=== PATIENT | male | born 1975 | race Asian ===

== ENCOUNTER 2017-03-28 04:41 | Inpatient (IN) | payer SELFPAY ==
[~2017-03-28] VITALS: Ht 165.1 cm; Wt 83.1 kg
[2017-03-28] VITALS (19 sets, daily range): BP systolic 104–143; BP diastolic 59–101; PULSE 55–71; RESP 11–20; O2SAT 95–99
--- NOTE | 2017-03-28 04:42 | ED.REPORT ---
HPI-Chest Pain 40 and Over Date of Service Mar 28, 2017 ED Provider: Dr. Georges The pt is a 42 y/o male with no pertinent hx who presents to the ED via EMS from [facility] due to a "4/10" substernal chest discomfort at rest that is exacerbated with deep breathing, onset about 7 hours ago. His BP en route was 150/102 The pt reported to the [facility] staff that he was getting into his car when he experienced sharp, substernal chest pain that radiated to his back. In the ED, the pt states his pain radiated up his neck. He was also dizzy, diaphoretic and nauseous. He denies lower extremity edema. Nursing Notes Stated Complaint: CHEST PAIN Nursing Notes Reviewed: Yes General Time Seen by MD: 04:42 Chief Complaint Chest pain Hx Obtained From: Patient, EMS Arrived By: Ambulance Sudden in Onset?: Yes Symptom Duration: Since onset Location: : Substernal Quality: Painful Radiation: : Neck Severity: Current: Pain level 4 out of 10 Severity: Maximum: Severe Similar Sx Previous: No Past Medical History Past Medical History none reported Past Surgical History none reported Family History Pt's uncles on mother's side of heart attacks at a young age. All of them smoked. Smoking History Current Every Day Smoker Social History Other Social History: Good social support, Ambulatory Status Independent Review of Systems Cardiovascular: Reports: Chest pain, Denies: Edema GI: Reports: Nausea Musculoskeletal: Reports: Back pain, Neck pain Skin: Reports Diaphoresis Neurologic: Reports: Dizziness Complete sys rev & neg: except as marked. Physical Exam Initial Vital Signs Vital Signs (First) Date Time Temp Pulse Resp B/P Pulse Ox O2 Delivery O2 Flow Rate FiO2 03/28/17 05:04 36.8 70 20 143/101 98 Room Air Initial VS: Reviewed Head / Eyes: Atraumatic, Normocephalic Extremities: Vascular intact, Neuro intact, No swelling, No tenderness Skin: Warm, Dry, No cyanosis Neurologic: Alert, Oriented, Nonfocal General/Constitutional: Awake, Alert, Well appearing, Cooperative Respiratory / Chest: Atraumatic, Breath sounds NL, Breath sounds = bilat, No respiratory distress, No rales, No rhonchi, No wheezing Cardiovascular: Heart rate NL, Regular rhythm, Heart sounds NL, No gallop, No murmurs, No rubs Abdomen: Atraumatic, Soft, Non-tender, No guarding, No rebound, BS normoactive Neck: Atraumatic, Supple, No adenopathy, No swelling, Non-tender, No JVD Lower Extremity / Pelvis / MS: Atraumatic, Full range of motion, No swelling, Non-tender, No deformity, Neurologic intact, Vascular intact Flea bites on both legs. Interpretation & Diagnostics Lab Results Interpretation Result Diagram: 03/28/17 0455 03/28/17 0455 Test 03/28/17 04:55 03/28/17 05:00 White Blood Count 8.8th/mm3 (3.8-10.1) Red Blood Count 5.42mil/mm3 (4.40-5.80) Hemoglobin 15.1g/dL (13.8-17.2) Hematocrit 43.8% (41.0-50.0) Mean Corpuscular Volume 80.8fL (81-100) Mean Corpuscular Hemoglobin 27.9pg (27.0-35.0) Mean Corpuscular Hemoglobin Concent 34.5% (32.0-37.0) Red Cell Distribution Width 13.1% (12.3-15.4) Platelet Count 305bil/L (150-400) Neutrophils (%) (Auto) 79.2% (40-74) Lymphocytes (%) (Auto) 15.6% (14-46) Monocytes (%) (Auto) 4.0% (4-12) Eosinophils (%) (Auto) 0.8% (0-5) Basophils (%) (Auto) 0.2% (0-3) Sodium Level 137mEq/L (134-144) Potassium Level 4.4mEq/L (3.5-5.2) Chloride Level 101mEq/L (97-108) Carbon Dioxide Level 17mmol/L (18-29) Blood Urea Nitrogen 8mg/dL (6-24) Creatinine 0.75mg/dL (0.76-1.27) Estimat Glomerular Filtration Rate 121mL/min (>59) Glucose Level 119mg/dL (60-99) Calcium Level 8.7mg/dL (8.5-10.1) Magnesium Level 2.3mg/dL (1.6-2.6) Total Bilirubin 0.5mg/dL (0.0-1.2) Aspartate Amino Transf (AST/SGOT) 29U/L (0-50) Alanine Aminotransferase (ALT/SGPT) 13U/L (0-44) Alkaline Phosphatase 73U/L (25-150) Troponin T 0.071ug/L (0.0-0.011) Pro-B-Type Natriuretic Peptide 57.75pg/mL (0-86) Total Protein 7.7g/dL (6.4-8.4) Albumin 4.2g/dL (3.4-5.0) Hold Ray Top Tube Received (Received) Hold Urine Received (Received) ECG Interpretation ECG Interpretation: ECG from [facility] at 03/27/17 (22:53) [place] sinus rhythm. Rate 79. Nonspecific repol abnormality, inferior leads. ECG #2 from [facility] 03/28/17 at 01:35 Normal sinus rhythm. Rate 71. Nonspecific repol abdnormality, inferior leads. ST elevation, consider lateral injury. ECG #3 from [facility] at 02:55 Normal sinus rhythm. Rate 74. ST elevation, probable normal early repol pattern ECG Interpretation: Normal sinus rhythm. Rate 71. Time: 04:44 Interpreted by: ED physician Normal ECG Interpretation: Normal ECG w/ rate of... (71), Normal rate, Normal sinus rhythm ECG Interpretation: Normal sinus rhythm. Rate 68. Rotation of lateral ST elevation. Reciprocal inferior changes. ST elevation, probable normal early repol pattern Time: 05:34 Interpreted by: ED physician X-Ray Chest Interpretation Chest Xray Interpretation: From [facility] (03/27/17) Normal single view chest View: Portable, 1 view Re-Eval/Medical Decision Med Decision/Clinical Course 42-year-old with lateral STEMI criteria and initially now resolving, but with some residual pain. EKG is returned essentially to normal. Troponin is elevated. Blood pressure is adequate and he is improving on advancing doses of nitroglycerin,, with additional morphine, heparin, aspirin, metoprolol single dose, Protonix, and Toradol. Discussed with cardiology will see urgently this morning. Admitted to the ICU. Time of Eval: 04:51 Re-Evaluation/Progress Note: Discussed the diagnoisis and plan to admit. Informed the pt that he will likely need catheterization. The pt understands and agrees with the plan. All questions answered. Time of Eval: 05:50 Re-Evaluation/Progress Note: The pt now rates his pain "8/10" in severity. Consultation #1: Referral / Consult Name: Misael Noble MD Consulted With: Cardiology Call Returned at: 03:50 Crop Picker: Will see patient, Agrees with eval, Agrees with plan Note: Recommends admitting the pt. Consultation #2: Referral / Consult Name: Kamryn Mack DO Consulted With: Hospitalist Call Returned at: 05:42 Crop Picker: Will see patient, Agrees with eval, Agrees with plan, Accepts admit Counseled Regarding: Diagnosis, Lab results, Need for admission Discharge & Departure Primary Impression: Acute IL Myocardial infarction ST status: non-ST elevation myocardial infarction Qualified Code: I21.4 - Non-ST elevation (NSTEMI) myocardial infarction Additional Impression: Chest pain Disposition: ADMITTED TO HOSPITAL Crit Care Except Billable Proc Time Spent: 30-74 minutes (sixty minutes) Services Performed: Patient management by me, Time spent at bedside, Reviewing test results, Reviewing imaging, Discussing patient care, Documentation in record, Time with fam/surrogate Scribe Attestation Portions of this note were transcribed by Mami Casarez. I,, personally performed the history,physical exam and medical decision-making;I reviewed and confirmed the accuracy of the information in the transcribed note. Signed by Tana Florentino. 03/28/17 Kam Georges MD Mar 28, 2017 04:42 Mami Casarez Mar 28, 2017 04:51
[2017-03-28] MEDS ORDERED: Heparin 25K Unit/500mL 0.45 NS 25,000 UNIT in IV Premix 1 EACH IV SCH ×2 (05:10→07:30)
[2017-03-28 05:15] LABS: BASOPHILS % (AUTO) 0.2 % (0-3); EOSINOPHILS % (AUTO) 0.8 % (0-5); Mean Corpuscular Hemoglobin 27.9 pg (27.0-35.0); Mean Corpuscular Volume 80.8 fL (81-100); NEUTROPHILS % (AUTO) 79.2 % (40-74); Platelet Count 305 bil/L (150-400)
[2017-03-28] MEDS ORDERED: Nitroglycerin 50 mg/250 mL D5W 50,000 MCG in IV Premix 1 EACH IV SCH ×2 (05:15→07:30)
[2017-03-28] MEDS ORDERED: MeTOProlol 1 mg/mL 5 mL Inj IVPUSH ONE (05:30)
[2017-03-28] MEDS ORDERED: Pantoprazole 40 mg ER24 Tablet PO ONE (05:55)
[2017-03-28 06:11] LABS: Magnesium 2.3 mg/dL (1.6-2.6)
[2017-03-28 06:14] LABS: TROPONIN T 0.071 ug/L (0.0-0.011)
[2017-03-28] MEDS ORDERED: 0.9% Sodium Chloride 1,000 ML IV SCH ×2 (07:23→12:35)
[2017-03-28] MEDS ORDERED: Polyethylene Glycol (PEG) 17 Gm Powder PO PRN (07:25)
[2017-03-28] MEDS ORDERED: Ondansetron 2 mg/mL 2 mL Inj IVPUSH PRN ×2 (07:25→07:30)
[2017-03-28] MEDS ORDERED: Alum-Mag Hydrox-Simeth 30 mL Suspension PO PRN (07:25)
[2017-03-28] MEDS ORDERED: Lactated Ringer's 1,000 ML IV SCH (07:26)
[2017-03-28] MEDS ORDERED: Nitroglycerin 50,000 mcg/250 mL D5W Premix IV ONE (09:04)
[2017-03-28] MEDS ORDERED: Heparin 1,000 Unit/mL 10 mL Inj ONE ×2 (09:04→10:07)
[2017-03-28] MEDS ORDERED: Heparin 1,000 Units/500 mL NS Premix IV ONE (09:04)
[2017-03-28] MEDS ORDERED: Heparin 10,000 Unit/1,000 mL NS Premix IV ONE (09:05)
[2017-03-28 09:18] LABS: APPEARANCE,URINE CLEAR (CLEAR,HAZY); COLOR,URINE STRAW (YELLOW)
[2017-03-28 09:19] LABS: OCCULT BLOOD,URINE TRACE (NEGATIVE); UROBILINOGEN,URINE NORMAL (NORMAL)
[2017-03-28] MEDS ORDERED: fentaNYL-PF 50 mCg/mL 2 mL Inj ONE ×2 (09:30→10:07)
--- NOTE | 2017-03-28 09:43 | CONS ---
[address] [address] CONSULTATION REPORT PATIENT: MERLE CHRISTY : 1975 MR#: [id number] ADMIT: 03/28/2017 JOB ID: [id number] DATE OF SERVICE: Tuesday, March 28, 2017 CARDIOLOGY CONSULTATION NOTE--INITIAL CRITICAL CARE EVALUATION (EMERGENCY DEPARTMENT): CONSULTING PHYSICIAN: Cardiology--Misael Noble MD PROBLEMS: 1. Acute coronary syndrome. (ACS): a. Chest pain-severe retrosternal chest pain; atypical because pleuritic; and now pain free. b. NSTEMI-troponin initially normal, then elevated. c. ECG-initially normal then nondiagnostic subtle lateral ST elevation; then ECG normalized. d. Working diagnosis is atypical ACS with NSTEMI. CORONARY ARTERY DISEASE RISK FACTORS: Hypertension--history of previous hypertension now resolved and no treatment. No history of treated hyperlipidemia. No history of diabetes. Cigarettes--Current smoking 1/3 pack per day for 30 years with no other cigarette sequelae noted. Family history--Strong family history of premature coronary disease (multiple uncles under 50 years old). OTHER MEDICAL PROBLEMS: 1. Gout. 2. Kidney stones. CHIEF COMPLAINT: Chest pain and abnormal ECG and abnormal troponin. HISTORY OF PRESENT ILLNESS: I am glad to meet this 42-year-old man who was transferred to this emergency department by ambulance after he initially presented to the emergency department at [facility] by his personal vehicle. The patient tells me he had the sudden onset of severe (8/10 intensity) retrosternal chest discomfort while getting out of his car yesterday evening. He was diaphoretic with "clamminess." The pain was severe and radiated to the neck and his back hurt a little. He has never had difficulty like this. Before the pain has been consistently worse with breathing in and is sharp in quality but also predominantly pressure-like. His course in the emergency department was initially notable for unremarkable ECG, negative troponin, and he was thought to have possibly heartburn and as much as he felt like his symptoms were heartburn. He does not have indigestion or heartburn usually. He had eaten a MRE (meal ready to eat) ration which was spicy. He had persistent pain. A followup ECG showed subtle ST-elevation in lead L1 and V6. Then a subsequent ECG was normalized, but troponin had become slightly elevated. He was transferred to this hospital with mild ongoing chest discomfort with NTG IV. He is now chest pain free. ECG after transfer here is not outside normal limits. CARDIAC HISTORY: The patient tells me he has had no prior heart history or evaluation. He is generally healthy. Has no doctor currently. He is generally very vigorously active without effort, limitation, or effort-related symptoms. 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 He is functional class one. He also works out including pull-ups. Regarding ischemic symptoms, he has had no prior chest discomfort or effort related chest pain. Regarding heart failure, he reports no chronic exertional dyspnea or nocturnal dyspnea or edema. Regarding arrhythmia, he reports no known arrhythmia or symptoms of arrhythmia, including tachy palpitation, presyncope, or syncope. Regarding other possible underlying vascular disease, he reports no history of CVA or current symptoms of TIA. No claudication. Regarding possible dual antiplatelet therapy, he reports no bleeding symptoms, no anticipated surgery; and he reports reliable to take mandatory medicines if needed. ALLERGIES: No known allergies. I elicit no history of allergy to medical contrast; or to fish, seafood, iodine, or shellfish. MEDICATIONS: He reports no medicines at all usually. He took Aleve about a month ago for a severe gout attack. PAST MEDICAL HISTORY: Gout: He had a recent episode of joint redness, inflammation, very severe could not even let sheets lay on his bilateral great toes and joints were inflamed to the hips. He took Aleve. REVIEW OF SYSTEMS: I questioned him and his about a 13-point review of systems, which is unremarkable, noncontributory, and negative, except as noted including: No history of thyroid disorder. Constitutional--He lost substantial weight in the past voluntarily from above 200 pounds to his current weight of 180. Otherwise no constitutional symptoms. No lung disorder including COPD, emphysema, or chronic bronchitis symptoms. No GI symptoms including hepatitis, jaundice, or ulcers. He may have rare heartburn not like the current. PERSONAL AND SOCIAL HISTORY: Alcohol--He drinks socially occasionally. Drugs--He reports no other drug use. Family--He lives with his of over 20 years who he met in childhood. They have grown children with grandchildren. FAMILY HISTORY: In addition to family history of premature coronary disease. Note also family history of hypertension and diabetes. PHYSICAL EXAMINATION: VITAL SIGNS: Blood pressure initially 143/101 now 120/80, with heart rate 71 regular in sinus rhythm on telemetry. Respiratory rate 15 and unlabored with SpO2 97% on nasal cannula 2 LPM. Afebrile. Weight 180 pounds. GENERAL APPEARANCE: Pleasant, well-developed man, in no distress. NEUROLOGIC AND MENTAL STATUS: No overt focal neurologic defect noted. He is alert, oriented, appropriate, and conversant. HEENT: PERRL. Conjunctivae pink. Sclerae not icteric. Mouth and mucous membranes intact with Mallampati four. NECK: Carotid upstroke difficult to feel due to body habitus, but appear unremarkable and no bruit bilaterally. No evident jugular venous distention. No palpable thyromegaly. No palpable cervical lymphadenopathy. LUNGS: Clear to auscultation bilaterally with normal forced expiratory time. CARDIAC: No chest wall tenderness. Cardiac examination notable for distant heart sounds, S4 gallop, and no loud murmur heard. ABDOMEN: Somewhat obese, but otherwise unremarkable examination without tenderness, mass, hepatosplenomegaly, or bruit of abdominal aortic aneurysm. EXTREMITIES: Intact without edema; and pedal pulses strong at the bilateral dorsalis pedis and posterior tibial. DIAGNOSTIC STUDIES: 1. Electrocardiogram: I reviewed the multiple serial ECGs beginning with the ECGs at [facility]. ECG initially abnormal with nonspecific ST cough depression inferiorly which in retrospect may represent subtle reciprocal ST depression, which cleared. Followup ECG showed subtle ST-elevation in L1 and V6 which do not meet guideline criteria for STEMI with concave upward ST elevation less than or equal to 1 mm. Then subsequent ECGs normalized; and the current ECG is not outside normal limits. No Q-waves. Also note no AZ depression or AZ elevation. 2. Chest x-ray: The chest x-ray shows borderline cardiomegaly, but overall not outside normal limits and no heart failure. LABORATORY: CBC includes WBC 8800, with hemoglobin 15.1, hematocrit 43.8, MCV 80.8 (borderline low) normal MCHC and platelet count 305,000. D-dimer not elevated. Urine toxicology pending. Chemistries include potassium 4.4 (initially 3.3 at the outside hospital) with BUN 8, creatinine 0.75 estimated. GFR 121. Glucose 119. Magnesium 2.3. LFT unremarkable. Cardiac markers include troponin 0.71, with proBNP not elevated 57.75 Note initial outside troponin negative, then became borderline elevated. ASSESSMENT: I discussed the findings, impressions, and management considerations with the patient and his ; also with the ED physician at [facility] ( ); with the ED physician here (Dr. Georges); with the hospitalist team (Dr. Chaney); and with Cardiology (Dr. Rosen) including: Acute coronary syndrome (ACS) with atypical presentation: 1. He presents with severe chest pain that is consistent with ischemia. 2. The chest discomfort also has atypical features being pleuritic. 3. It was severe, then ongoing, now pain free. 4. He is otherwise clinically stable. 5. The ECG had transient changes suggestive of STEMI, but not definitive. 6. The troponin points to coronary disease as well. The overall impression and working diagnosis is likely coronary disease presenting with atypical scenario with ST elevation that was nondiagnostic, then resolved. I discussed with the patient and his the recommendation to proceed now with urgent coronary angiogram for definitive diagnosis and to guide treatment decisions including medical therapy or percutaneous coronary intervention (PCI); or coronary bypass surgery if needed. We discussed the uncertainty and the diagnosis and the possibility of other diagnoses including pulmonary embolus. We discussed the procedure including possible risks and complications. We discussed bleeding, infection, and blood clot; as well as injury to nerve, artery, vein or kidney; and also arrhythmia, drug reaction; or others. We discussed treatment as needed including surgery, pacemaker, transfusion. We discussed more serious complications that are possible including stroke, heart attack, cardiac arrest, and emergency surgery including transfer for coronary bypass surgery. After our discussion and questions, he signed informed consent to proceed. RECOMMENDATIONS: 1. Coronary angiogram. 2. Echocardiogram. 3. Admit to the hospitalist for OMT-optimal guideline directed medical therapy including ASA consider Plavix; beta-francisco; high-intensity statin consider DEBO inhibitor later; IV NTG; and IV heparin infusion.
--- NOTE | 2017-03-28 10:40 | PCM.HPMED ---
Subjective Date of Service Mar 28, 2017 Primary Provider: Admitting Physician: Kamryn Mack DO Primary Care Physician: Nopcp Attending Physician: Kamryn Mack DO Chief Complaint: Patient 42-year-old transferred from [facility] to [facility] for acute chest pain. History of Present Illness: Patient reports being fairly healthy with medical history significant for gout in the family history of sudden cardiac in 2 uncles. Patient reported about 10 PM last night, started having pleuritic chest pain after stepping off his truck to a friend's house with associated lightheadedness. This pain evolve to all left shoulder and left jaw pain. Patient describes his pain as crushing. Patient was initially evaluated with [facility]. where the initial thought was GERD related. GI cocktail was given did not resolve pain. The initial EKG did not show any ST elevation, however repeated EKG showed ST elevation consistent with lateral FL. Patient was just transferred discussion for further evaluation. He was started on heparin and nitroglycerin which helped resolve his chest pain. Patient denies any chest pain, shortness of breath, lightheadedness, palpitation, dizziness, or headaches on interview. Patient further denies any nausea or vomiting. Review of Systems: A comprehensive review of systems was conducted with the patient and found to be negative except as above in the History of Present Illness. Allergies Coded Allergies: No Known Allergies (Unverified , 03/28/17) Home Medications Denies any home medication [facility] Gout Surgical History Denies Family History Father with hypertension and diabetes and 2 Mother with hypertension History of sudden in 2 uncles at 52 and 42 years old. 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 Hx Alcohol Use: No Hx Substance Use: No Smoking Status: Current Every Day Smoker Living Arrangement: with Family Exam Vital Signs Vital Sign - Last Date Time Temp Pulse Resp B/P Pulse Ox O2 Delivery O2 Flow Rate FiO2 03/28/17 07:00 71 17 122/81 95 Room Air 03/28/17 05:04 36.8 Intake and Output 03/27/17 03/27/17 03/28/17 Cumulative From/Thru 15:00 23:00 07:00 03/28/17 05:04 - 03/28/17 06:22 Intake Total 200 ml 200 ml Output Total 550 ml 550 ml Balance -350 ml -350 ml Intake Oral 200 ml 200 ml Output Urine Total 550 ml 550 ml Exam General: No acute distress, appropriately interactive HEENT: Normocephalic, atraumatic. PERRLA, EOMI, Anicteric sclerae, moist conjunctivae. Neck: No JVD, No bruits. No lymphadenopathy or thyromegaly. Cardiovascular: Regular rate and rhythm with no murmurs, rubs, or gallops appreciated Pulmonary: b/l air sound with no crackles, wheezes, or rhonchi. no use of accessory muscles. Abdomen: +Bowel sound, Soft, nontender, nondistended. Extremities: No clubbing or cyanosis, no lymphedema, no b/l lower leg edema Skin: Normal temperature, turgor, and texture; no rash. No visualized skin ulcer. Neurological: CN II-VII grossly intact, moving equally on all 4 extremities Psychiatric: Normal mood and affect. AOx3 Lab and Diagnostics Result Diagram: 03/28/17 0455 03/28/17 0455 Assessment & Plan 42-year-old male without significant health history present with Floretta chest pain found to have lateral STEMI with elevated troponin, admitted for STEMI STEMI -D-dimer negative, Elevated troponins, ST elevation noted at around 2 AM this morning, normal sinus Resolve ST elevation after nitro drip started prior to catheterization -Continue aspirin daily, added atorvastatin -Heparin and nitroglycerin drip -Catheterization later today, echocardiogram ordered -Lipids panel in a.m. Elevated blood pressure -Likely underlining primary hypertension -UA negative for protein -Monitor Hyperglycemia -A1c pending Tobacco use disorder -Discussed to the dangers of smoking and the benefits of cessation. -Nicotine patch provided DVT prophylaxis heparin CODE STATUS full code Patient Status: Patient is admitted under inpatient status with expected length of stay GREATER than 2 midnights due to severity of presenting symptoms, risk of adverse event, and complexity of treatment plan. GI Prophylaxis: Not indicated Resuscitation Status: CPR: Attempt Resuscitation Time spent 50 minutes Attending Statement The patient was seen and examined together with on March 28 and I agree with the history, exam findings, and plan as outlined in the note above. I did participate in all aspects of the services provided today, including documentation and the plan of care. This patient underwent stenting and clinically is doing well. He has minimal troponin elevation, no evidence of dyspnea or ventricular dysfunction. No arrhythmia. Anticipate observation for another 24 hours and probable discharge home. Philip Villafuerte DO Mar 28, 2017 07:23 Joss Rosario MD Mar 29, 2017 07:49
--- NOTE | 2017-03-28 12:24 | CS94 ---
[address] [address] DIAGNOSTIC CARDIAC CATHETERIZATION PATIENT: MERLE CHRISTY : 1975 MR#: [id number] ADMIT: 03/28/2017 JOB ID: [id number] PROCEDURE NOTE-CARDIAC CATHETERIZATION LABORATORY: SERVICE DATE: Tuesday, March 28, 2017. MATERIAL REQUISITIONER: Misael Noble MD PROCEDURES: 1. Coronary angiogram--urgent. 2. Left heart catheterization (LHC)--pressure measurement. 3. Percutaneous coronary intervention (PCI)-SOLANGE (drug-eluting stent) Xience 2.25 x 15 in ostium of occluded obtuse marginal one. CLINICAL DETAILS: This 42-year-old man presents to the cardiac catheterization laboratory after he was transferred to the emergency department here from the [facility] Emergency Department where he had presented the evening prior with the first ever onset of severe chest pain that was pressure like, but also atypical with sharp and pleuritic components. He has no prior known heart disease. CORONARY RISK FACTORS: Include ongoing smoking 1/3 pack a day for 30 years; and a strong family history of premature coronary disease including in three uncles in their 40s. Initially his symptoms were considered possibly heartburn; ECG was normal; and troponin was negative. Later troponin became slightly elevated; and ECG showed subtle nondiagnostic ST elevation with concave upward ST elevation less than or equal to 1 mm only in L1 and V6; but there been initially inferior ST depression. Subsequent ECGs showed normalization of the subtle ST elevation as well as the inferior ST depression (consider reciprocal changes). Chest pain cleared with modest doses of NTG IV. The clinical working diagnosis is probable ACS with atypical presentation with resolved chest pain and resolved JULIÁN. PROCEDURAL DETAILS: I evaluated him urgently in the emergency department prior to the procedure where I discussed the findings, impressions, and management considerations with him and his ; including the recommendation to proceed urgently to coronary angiogram for definitive diagnosis and to guide management options including medical therapy; PCI if needed; or CAD if indicated. We discussed the procedure including possible risks and complications. After discussion and questions, he signed informed consent to proceed. He was brought to the catheterization laboratory n.p.o. where he was prepped sterilely and draped. Prior to the procedure he had received ASA; heparin IV infusion; NTG IV infusion; and statin. CORONARY ANGIOGRAM: Arterial access was obtained without difficulty in the right common femoral artery using fluoroscopic localization over the femoral head; with lidocaine local anesthesia; and modified Seldinger technique to insert a 10 cm, 6-Congolese side-arm sheath. Catheters were advanced and exchanged over a long 0.035-inch J-tipped guidewire. For coronary angiography, the left coronary artery was engaged with a 6-Congolese JL-4 diagnostic catheter; and the right coronary artery was engaged with a 6-Congolese JR-4 catheter. LHC: The catheter crossed the aortic valve into the left ventricle where pressures were measured including LVED; and pullback. PERCUTANEOUS CORONARY INTERVENTION (PCI) of ostial OM-1: The diagnostic images were reviewed and decision was made to proceed with urgent PCI of the occluded ostial OM-1 (WOLFGANG 0 flow). For intervention, he received Prasugrel loading dose 60 mg p.o.; and procedural anticoagulation was obtained with bolus heparin IV. NTG IC was used during the procedure. The left coronary artery was gauged for intervention with a 6-Congolese HBS 3.5 guide catheter. The occlusion was crossed without difficulty using a BMW wire--0.014 inches x 190 cm--which was placed distally in the OM. Predilatation: The lesion was pre-dilated and the artery was opened with two inflations of a Trek balloon--2.5 x 15 mm--inflated to maximum 8 atmospheres. Stent: Next, the site of occlusion in the ostial OM was treated with a Xience Alpine SOLANGE--2.25 x 15 mm-deployed with two inflations to maximum 18 atmospheres. Completion angiograms show an excellent angiographic result with no residual lesion; WOLFGANG-3 flow resumed; and no angiographic complication evident. Procedure without difficulty. Patient tolerated procedure well. No complication. A side-arm sheath angiogram shows adequate access in the RFA for closure device. Arterial hemostasis is obtained without difficulty using a 6-Congolese StarClose clip. The patient is transferred pain free, improved, and in stable condition from the catheterization laboratory to the CCU unit for ongoing care including by the primary hospitalist team. I discussed the procedure findings and ongoing management considerations with the patient and his ; with Cardiology (Dr. Rosen); and with the hospitalist team ( ). FINDINGS: 1. LMCA: Short. Intact. 2. LAD: Intact except for mild atherosclerotic plaquing; and 50% to 60% proximal narrowing of a small to medium-sized OM-1 (2-2.5 mm). The left anterior descending coronary artery is a large transapical vessel. 3. LCX: Note OM-1 (after a very small more proximal OM) is occluded just past the ostium. After revascularization the vessel is seen to be long and moderate to large size; and has some mild proximal plaquing distal to the treatment site. The remainder of the LCX distribution includes a very large LPLB. 4. RCA: Dominant. Note mild to moderate diffuse atherosclerotic plaquing including 50% focal proximal narrowing. The RCA is a large vessel with a medium-sized PDA and a small to medium-sized RPLB distribution. 5. LHC: LVED 28 mmHg; and no systolic gradient on pullback across the aortic valve. CONCLUSIONS: 1. PCI-Xience Alpine SOLANGE 2.25 x 15 mm deployed at high pressure in ostium of occluded OM-1. 2. ACS-NSTEMI with atypical presentation including resolved nondiagnostic JULIÁN. 3. Coronary artery disease (CAD)--single vessel CAD of OM-1; and note also diffuse moderate atherosclerotic plaquing. RECOMMENDATIONS: 1. ECASA--indefinitely. 2. Prasugrel--Plan dual antiplatelet therapy for one year if well tolerated including with ongoing Cardiology followup; and I discussed with the patient and his not to stop Prasugrel for any reason without immediate Cardiology consultation. They understand the importance of mandatory aspirin and Prasugrel. 3. Eechocardiogram. 4. Admit to the hospitalist service. 5. OMT--Guideline directed optimal medical therapy for underlying CAD risk factors and CAD. I discussed with him the critical importance of smoking cessation. PLAN: ASA; Prasugrel; high-intensity statin; beta-francisco; and later to consider DEBO inhibitor.
[2017-03-28] MEDS ORDERED: 0.9% Sodium Chloride 250 ML BOLUS IV PRN (12:35)
[2017-03-28] MEDS ORDERED: Sodium Chloride LOK Flush 10 mL Syringe IVFLUSH PRN (12:35)
--- NOTE | 2017-03-28 13:06 | NUR ---
Admit/Heart Cath Recovery Patient arrived to 2012 from dye lab technician around 1050, Nitro infusing @ 30mcg/min w/ orders to titrate down & STOP, currently infusing @ 5mcg/min, no c/o cp/pressure, BP stable. Post procedure checks completed & WNL, hourly checks from this point forward. Scant amount of sang from right groin, soft to palpation, able to ambulate at 1300, patient stood to use urinal, tolerated well, no oozing from groin site post activity. NS infusing @ 100ml/hr. EKG & echo completed. Able to eat @ 1500, oriented to room, admit completed by primary RN.
--- NOTE | 2017-03-28 13:53 | DRSVH ---
PROCEDURE: X-RAY CHEST ONE VIEW, PORTABLE ([id number]) INDICATIONS: CHEST PAIN TECHNIQUE: One view of the chest was acquired. COMPARISON: None. FINDINGS: Surgical changes and devices: None. Lungs and pleura: No pleural effusions or pneumothorax. Lungs are clear. Mediastinum: Mediastinal contours appear normal. Heart size is normal. Bones and chest wall: No suspicious bony lesions. Overlying soft tissues appear unremarkable. IMPRESSION: 1. No acute cardiopulmonary disease. Dictated by: Roger Aleman M.D. on 03/28/2017 at 13:51 Approved by: Roger Aleman M.D. on 03/28/2017 at 13:52
--- NOTE | 2017-03-28 14:39 | DRSVH ---
[facility] [address] [place] [address] Echocardiogram Report Name: MERLE CHRISTY FStudy Date : 03/28/2017 Height: 65 in Hospital Exam Location: [facility] Weight: 178 lb Gender: Male BSA: 1.9 m2 : 1975 Age: 42 yrs BP: 120/80 mmHg Reason For Study: STEMI Ordering Physician: HOSPITALIST [facility] Performed By: Connie Acuña Referring Physician: HOSPITALIST [facility] Interpretation Summary The left ventricle is normal in size. The ejection fraction is estimated to be 40-45%. There appears to be severe hypokinesis of mid to distal posterolateral wall, extending in to the mid to distal anterolateral wall. Inferior wall appears to be mildly hypokinetic as well. The right ventricle is grossly normal size. The right ventricular systolic function is normal. No significant valvular pathology seen. Procedure: A two-dimensional transthoracic echocardiogram with color flow and Doppler was performed. The study quality was technically adequate. There is no prior echocardiogram noted for this patient. The patient was in normal sinus rhythm during the exam. Left Ventricle: The left ventricle is normal in size. There is normal left ventricular wall thickness. There is no thrombus. The ejection fraction is estimated to be 40-45%. There appears to be severe hypokinesis of mid to distal posterolateral wall, extending in to the mid to distal anterolateral wall. Inferior wall appears to be mildly hypokinetic as well. Assessment of diastolic parameters indicates a relaxation abnormality of the left ventricle, consistent with normal filling pressures. Right Ventricle: The right ventricle is grossly normal size. The right ventricular systolic function is normal. Atria: The left atrial size is normal. Right atrial size is normal. The interatrial septum is intact with no evidence for an atrial septal defect. Mitral Valve: The mitral valve leaflets are slightly calcified. There is trace mitral regurgitation. Aortic Valve: The aortic valve is trileaflet. The aortic valve opens well. There is no aortic valve stenosis. No aortic regurgitation is present. Tricuspid Valve: The tricuspid valve is normal in structure and function. There is trace tricuspid regurgitation. Pulmonary artery pressures cannot be estimated because of the lack of a measurable TR jet velocity. Pulmonic Valve: The pulmonic valve is not well seen, but is grossly normal. There is a trace or physiologic amount of pulmonic regurgitation. Great Vessels: The aortic root is normal size. The ascending aorta is normal in size. The IVC is of normal diameter and collapses greater than 50% with a sniff. This suggests a low right atrial pressure of 3 mm Hg. Pericardium/ Pleura There is no pericardial effusion. There is no pleural effusion. MMode/2D Measurements & Calculations LVIDd: 5.3 cm RA long axis LVOT diam LVIDs: 4.1 cm LA A2 area: 15.8 cm FS: 22.6 % LA A4 area: 16.2 cm RA area asc Aorta IVSd: 0.88 cm LA length (vol): 5.0 cm Diam: 2.7 cm LVPWd: 0.98 cm LA vol: 42.8 ml : 15.9 cm LA vol index RA vol: 42.5 ml RA : 22.6 mm2 IVC diam: 1.9 cm LV nelson. diameter/BSA LV sys. diameter/BSA TAPSE: 2.2 cm (cm/m^2): 2.8 (cm/m^2): 2.2 Doppler Measurements & Calculations Ao V2 max: 103.5 cm/secMV E max quinten MV E/A: 0.89 PA V2 max Ao max P.3 mmHg : 64.3 cm/sec Med Peak E' Quinten : 44.5 cm/sec Ao mean P.7 mmHg MV A max quinten PA mean PG LVOT Max Quinten : 72.4 cm/sec E/E' med: 10.2 : 0.42 mmHg : 87.9 cm/sec Lat Peak E' Quinten SHANA(I,D): 3.2 cm E/E' lat: 7.6 sev ratio: 0.78 E/e' average: 8.9 MV dec time: 0.16 sec Ao V2 mean LV V1 max PG PA V2 mean : 79.0 cm/sec : 30.8 cm/sec Ao V2 VTI: 22.6 cmLV V1 VTI: 17.5 cm PA pr(Accel) : 18.6 mmHg SHANA(V,D): 3.5 cm2 SHANA indexed to BSA (cm^2/m^2): 1.7 Reading Physician:PM
--- NOTE | 2017-03-28 15:38 | NUR ---
PCC Status Patient downgraded to PCC status @ 1530, nitro gtt weaned off, post heart cath checks completed. NS infusing @ 100ml/hr. 2L O2 placed d/t reports of sleep apnea & patient c/o feeling sob. Right groin site dressing removed by security alarm installer & replaced by RN, slight sang oozing, no hematoma noted. Tolerated standing at the bedside well, no oral intake per patients choice, states he'll eat dinner. Family at the bedside.
--- NOTE | 2017-03-28 17:29 | NUR ---
Social Work- Brief Note/Attempted Initial Assessment Data: EMR reviewed. Pt is a 42 year old male admitted for acute LA s/p cath. Pt's insurance is [employer]. Pt's PCP is not listed. Pt's readmit risk score is not entered at this time. Pt discussed in multidisciplinary rounds. No concerns for pt's capacity for self-care. Per chart review pt has already been up ambulating in the halls. SW attempted to meet with pt at bedside regarding d/c plan. Pt had numerous family in the room and requested that COLD ROLL INSPECTOR return tomorrow so as not to interrupt their visit. Per chart review pt resides at home in [place] with his where he is independent at baseline with ADLs and self-care. 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 Pt is typically vigorously active. No discharge planning needs or barriers anticipated at this time, but COLD ROLL INSPECTOR will follow up with pt tomorrow to confirm discharge plan. Assessment: Pt who is independent with ADLs and self-care Plan: Pt likely to d/c home with to transport via POV. No discharge needs anticipated upon chart review, but COLD ROLL INSPECTOR will meet with pt tomorrow to confirm d/c plan. TOMAS Rosales
[2017-03-29] VITALS (8 sets, daily range): BP systolic 119–144; BP diastolic 77–94; PULSE 56–76; RESP 14–20; O2SAT 97–99
[2017-03-29 02:41] LABS: Mean Corpuscular Volume 82.5 fL (81-100)
--- NOTE | 2017-03-29 06:17 | NUR ---
Assumed care ~1930, pt. A/O with family at bedside. Denies pain or discomfort. R groin site changed and remains c/d/i. Up without difficulty to BR and throughout room. Rested for extended period. VSS. Tele: SR in 60s. Indicates no further needs.
--- NOTE | 2017-03-29 13:07 | PCM.PNMED ---
Subjective Date of Service Mar 29, 2017 Subjective Patient is a 42-year-old male without significant health history presented with cardiac chest pain, diagnosed with STEMI, status post one drug-eluting stent to the obtuse marginal 1. Patient without new complaints today, feels mild generalized weakness compared to yesterday. Otherwise, patient denies any chest pain, shortness of breath, dizziness, or palpitation. Exam Vital Signs Vital Sign - Last Date Time Temp Pulse Resp B/P Pulse Ox O2 Delivery O2 Flow Rate FiO2 03/29/17 10:54 63 03/29/17 08:45 36.7 16 138/84 99 Room Air 03/28/17 07:30 2 Intake and Output 03/28/17 03/28/17 03/29/17 Cumulative From/Thru 15:00 23:00 07:00 03/28/17 05:04 - 03/29/17 06:16 Intake Total 1069 ml 908 ml 2177 ml Output Total 600 ml 1300 ml 2450 ml Balance 469 ml -392 ml -273 ml Intake Oral 400 ml 200 ml 800 ml IV Total 669 ml 708 ml 1377 ml Output Urine Total 600 ml 1300 ml 2450 ml # Voids 3 3 # Bowel Movements 0 0 Exam General: No acute distress, appropriately interactive HEENT: Normocephalic, atraumatic. PERRLA, EOMI, Anicteric sclerae, moist conjunctivae. Neck: No JVD, No bruits. No lymphadenopathy or thyromegaly. Cardiovascular: Regular rate and rhythm with no murmurs, rubs, or gallops appreciated Pulmonary: b/l air sound with no crackles, wheezes, or rhonchi. no use of accessory muscles. Abdomen: +Bowel sound, Soft, nontender, nondistended. Extremities: No clubbing or cyanosis, no lymphedema, no b/l lower leg edema Skin: Normal temperature, turgor, and texture; no rash. No visualized skin ulcer. No hematoma on the right upper leg Neurological: CN II-VII grossly intact, moving equally on all 4 extremities Psychiatric: Normal mood and affect. AOx3 IVs and Medications Medications Reviewed: Medications were reviewed in detail Lab and Diagnostics Result Diagram: 03/29/1721903/29/17219 Cardiac Echo Impressions Echocardiogram Reason For Study: STEMI Ordering Physician: HOSPITALIST [facility] Performed By: Connie Acuña Referring Physician: HOSPITALIST [facility] Interpretation Summary The left ventricle is normal in size. The ejection fraction is estimated to be 40-45%. There appears to be severe hypokinesis of mid to distal posterolateral wall, extending in to the mid to distal anterolateral wall. Inferior wall appears to be mildly hypokinetic as well. The right ventricle is grossly normal size. The right ventricular systolic function is normal. No significant valvular pathology seen. Reading Physician: PM Additional Diagnostics PROCEDURE NOTE-CARDIAC CATHETERIZATION LABORATORY: CONCLUSIONS: 1. PCI-Xience Alpine SOLANGE 2.25 x 15 mm deployed at high pressure in ostium of occluded OM-1. 2. ACS-NSTEMI with atypical presentation including resolved nondiagnostic JULIÁN. 3. Coronary artery disease (CAD)--single vessel CAD of OM-1; and note also diffuse moderate atherosclerotic plaquing. RECOMMENDATIONS: 1. ECASA--indefinitely. 2. Prasugrel--Plan dual antiplatelet therapy for one year if well tolerated including with ongoing Cardiology followup; and I discussed with the patient and his not to stop Prasugrel for any reason without immediate Cardiology consultation. They understand the importance of mandatory aspirin and Prasugrel. 3. Eechocardiogram. 4. Admit to the hospitalist service. 5. OMT--Guideline directed optimal medical therapy for underlying CAD risk factors and CAD. I discussed with him the critical importance of smoking cessation. PLAN: ASA; Prasugrel; high-intensity statin; beta-francisco; and later to consider DEBO inhibitor. Misael Noble MD 03/28/17 2855 Assessment & Plan 42-year-old male without significant health history present with cardiac chest pain found to have lateral STEMI with elevated troponin, admitted for STEMI STEMI -D-dimer negative, Elevated troponins with ST elevation -received 1 drug eluting stent to OM-1 -Cont aspirin, atorvastatin, -Switch from prasugrel to plavix. added metoprolol -Continue telemetry -will need tool and die designer outpatient follow-up Heart failure with reduced EF -Echo showed EF 40-45%, with severe hypokinesis to mid distal posterolateral wall -Secondary to STEMI -Consider repeat echo to reevaluate cardiac function down the line Elevated blood pressure -metoprolol as above Hyperglycemia -A1c 6.0 Dyslipidemia -Triglyceride 256, with cholesterol 175, HDL 25 -High intensity atorvastatin Tobacco use disorder -Discussed to the dangers of smoking and the benefits of cessation. -Nicotine patch provided Possible TREY -will need a formal sleep eval -overnight oximetry DVT prophylaxis heparin CODE STATUS full code Disposition: Possible discharge 03/30/2017. GI Prophylaxis: Not indicated Resuscitation Status: CPR: Attempt Resuscitation Attending Statement The patient was seen and examined together with on March 29 and I agree with the history, exam findings, and plan as outlined in the note above. I did participate in all aspects of the services provided today, including documentation and the plan of care. Patient is doing well after PCI yesterday. Cardiology is asked to observe more morbidity. He denies any chest pain. He is tolerating his cardioprotective medical regimen without difficulty. Probable discharge tomorrow, March 30. Philip Villafuerte DO Mar 29, 2017 12:40 Joss Rosario MD Mar 30, 2017 08:21
--- NOTE | 2017-03-29 13:34 | NUR ---
Social Work: Initial Assessment Data: See initial assessment. Patient is a 42 year old male who was admitted on 03/28/17 for acute MD per H&P. Patient's insurance is [employer] and patient does not have a PCP at this time. EMR reviewed. SW met with patient to discuss discharge planning. SW role explained. Patient states that he lives with his spouse in [place]. Patient considers his to be his main support person. Patient denies having a DPOA or AD at this time. Patient declined SW's offer for AD resources. Patient denies hx of home health services or SNF. Patient denies having gear straightener care insurance or VA benefits. Upon discharge, patient states that transportation will be provided by spouse. SW provided patient with discharge planning checklist and encouraged to call with any questions/concerns. Phone number provided. SW will continue to follow. Assessment: Patient will discharge home with spouse. Plan: Patient will discharge home with spouse when medically ready. Transportation will be provided by . Patient was discussed in morning rounds. No needs are anticipated at this time. SW will continue to follow. TOMSA Mosher Addendum: 03/29/17 at 1341 by ROXY LU Amended: Links added.
[2017-03-29 17:42] LABS: TROPONIN T 1.62 ug/L (0.0-0.011)
--- NOTE | 2017-03-29 18:05 | NUR ---
Activity/Education Cardiac: Denies chestpain. Tele: SR 60's. Pt reports mild dizziness when ambulating to the bathroom this AM, resolved by afternoon. Pt given extensive education on heart disease and post-stent care including lifestyle changes. Pt given education materials on angioplasty with stent, heart healthy diet, TREY, and MT. Pt also given smoking cessation material. Questions answered, pt voices understanding. Resp: Pt denies SOB, SPO2 99% on RA. GI/: Pt denies n/v Neuro: A/Ox3, ZAPATA. Verbalizes needs.
[2017-03-30 03:44] LABS: Bilirubin, Direct 0.2 mg/dL (0.0-0.3)
--- NOTE | 2017-03-30 04:04 | NUR ---
Cardiac / pulse ox Patient denies chest pain or shortness of breath, states he has a small amount of dizziness while in the bed. Teaching performed on medications and orthostatic hypotension. Post stent teaching. Encouraged patient to voice questions when he thinks of them, denies any at this time. Tele SR, no ectopy noted, BP stabl.e Patient hooked up to SpO2 monitoring overnight. No desaturations noted.
[2017-03-30 04:24] VITALS: BP 125/80; PULSE 59; RESP 16; O2SAT 95
[2017-03-30 08:00] VITALS: BP 122/85; PULSE 68; RESP 22; O2SAT 95
[2017-03-30] MEDS ORDERED: METO25TA6 PO (08:03)
[2017-03-30] MEDS ORDERED: ASPI81TA3 PO (08:03)
[2017-03-30] MEDS ORDERED: NITR0.4T SL (08:03)
[2017-03-30] MEDS ORDERED: CLOP75TA28 PO (08:04)
[2017-03-30] MEDS ORDERED: ATOR20TA65 PO (08:04)
--- NOTE | 2017-03-30 08:22 | PCM.DIMED ---
Philip Villafuerte H DO 03/30/17 0701: Discharge Instructions Date of Service Mar 30, 2017 Dates of Hospitalization Mar 28, 2017 at 05:47 Discharge Diagnosis Discharge Diagnosis STEMI Heart failure with reduced EF Elevated blood pressure Hyperglycemia Dyslipidemia Tobacco use disorder Possible TREY Medication Instructions Additional med instructions Please take Plavix 75 mg daily and aspirin 81 mg daily for at least a year. This is very important to keep your stent from occluding. Please also take your dyslipidemia medication, atorvastatin 40 mg nightly. For your blood pressure, please take metoprolol 12.5 mg bid, that means 1/2 pill for breakfast 1/2 pill for dinner I have also included Nitrostat You can take this medication when you have acute chest pain. You can take 1 pill every 5 minutes for up to 3 times. Diet Discharge Diet: Heart Healthy Activity Discharge Activity: No restrictions Call your provider Call your provider for: Shortness of breath, Bleeding, Chest pain, Weakness ( unilateral) Patient Instructions Patient Instructions DISCHARGE INSTRUCTIONS: Medicines: You may need any of the following: * Heart medicines help decrease blood pressure, control your heart rate, and help your heart function better. * Nitroglycerin opens the arteries to your heart, increases oxygen levels, and can decrease chest pain. You may get your nitroglycerin as a pill, a patch, or a paste. Ask your healthcare provider or concierge receptionist how to safely take this medicine. * Aspirin helps prevent clots from forming and causing blood flow problems. If healthcare providers want you to take aspirin daily, do not take acetaminophen or ibuprofen instead. Do not take more or less aspirin than healthcare providers say to take. If you are on another blood thinner medicine, ask your healthcare provider or concierge receptionist before you take aspirin for any reason. * Blood thinners help prevent blood clots. Examples of blood thinners include heparin and warfarin. Clots can cause strokes, heart attacks, and . The following are general safety guidelines to follow while you are taking a blood thinner: * Watch for bleeding and bruising while you take blood thinners. Watch for bleeding from your gums or nose. Watch for blood in your urine and bowel movements. Use a soft washcloth on your skin, and a soft toothbrush to brush your teeth. This can keep your skin and gums from bleeding. If you shave, use an electric shaver. Do not play contact sports. * Tell your dentist and other healthcare providers that you take anticoagulants. Wear a bracelet or necklace that says you take this medicine. * Do not start or stop any medicines unless your healthcare provider tells you to. Many medicines cannot be used with blood thinners. * Tell your healthcare provider right away if you forget to take the medicine, or if you take too much. * Cholesterol medicine decreases cholesterol and the amount of plaque in your blood. * Do not take certain medicines without asking your healthcare provider first. These include NSAIDs, herbal or vitamin supplements. * Take your medicine as directed. Contact your healthcare provider if you think your medicine is not helping or if you have side effects. Tell him or her if you are allergic to any medicine. Keep a list of the medicines, vitamins, and herbs you take. Include the amounts, and when and why you take them. Bring the list or the pill bottles to follow-up visits. Carry your medicine list with you in case of an emergency. Cardiac rehabilitation (rehab) is a program run by specialists who will help you safely strengthen your heart and prevent more heart disease. The plan includes exercise, relaxation, stress management, and heart-healthy nutrition. Healthcare providers will also check to make sure any medicines you take are working. The plan may also include instructions for when you can drive, return to work, and do other normal daily activities. Follow up with your healthcare provider or concierge receptionist within 14 days or as directed: Ask for information about continuing care, treatments, and home services. Write down your questions so you remember to ask them during your visits. Lifestyle changes: * Go to cardiac rehabilitation as directed. This is a program run by specialists who will help you safely strengthen your heart and prevent more heart disease. This plan includes exercise, relaxation, stress management, and heart-healthy nutrition. Healthcare providers will also check to make sure any medicines you are taking are working. The plan may also include instructions for when you can drive, return to work, and do other normal daily activities. * Eat a heart healthy diet. Get enough calories, protein, vitamins, and minerals to help prevent poor nutrition and promote muscle strength. You may be told to eat foods low in cholesterol or sodium (salt). You also may be told to limit saturated and trans fats. Eat foods that contain healthy fats, such as walnuts, salmon, and canola and soybean oils. Eat foods that help protect the heart, including plenty of fruits and vegetables, nuts, and sources of fiber. * Do not smoke. If you smoke, it is never too late to quit. Smoking increases your risk of another MT. * Exercise. Ask your healthcare provider or concierge receptionist about the best exercise plan for you. Exercise makes your heart stronger, lowers blood pressure , and helps prevent an MT. The goal is 30 to 60 minutes a day, 5 to 7 days a week. Ask your healthcare provider or concierge receptionist how often and how long to exercise. * Maintain a healthy weight. Ask your healthcare provider or concierge receptionist how much you should weigh. Ask him to help you create a weight loss plan if you are overweight. * Manage your stress. Stress may slow healing and lead to illness. Learn ways to control stress, such as relaxation, deep breathing, and music. Talk to someone about things that upset you. * Get a flu vaccine every year as soon as it is available. The vaccine will help prevent the flu. Ask about other vaccinations you may need. Contact your healthcare provider or concierge receptionist if: * You have trouble taking your heart medicine. * You have questions or concerns about your condition or care. Seek care immediately or call 911 if: * You have any of the following signs of a heart attack: * Squeezing, pressure, or pain in your chest that lasts longer than 5 minutes or returns * Discomfort or pain in your back, neck, jaw, stomach, or arm * Trouble breathing * Nausea or vomiting * Lightheadedness or a sudden cold sweat, especially with chest pain or trouble breathing * You are tired and cannot think clearly. * Your heart is beating faster than usual. * You are bleeding from your gums or nose. * You see blood in your urine or bowel movements. * You urinate less than usual or not at all. * You have new or increased swelling in your feet or ankles Follow-up plan You were admitted for an acute myocardial infarction, otherwise known as a heart attack. You received 1 stent at the obtuse marginal-1 coronary artery Please take your medication as instructed. You you need to have a hospital follow-up within 1 week of hospitalization. You can reestablish care with your PCP Alternatively he can go to your [place] Or lastly, you can call [facility] Internal medicine residency. -you can request for Dr. Philip Villafuerte ([place]) PCP needs to refer you to a sleep specialist for evaluation of obstructive sleep apnea. You can have pcp to call [facility] for medical records. You will also need to establish care and followup with a concierge receptionist. -Dr. Debora Rosen -please call his office to make an appt Additionally, you will need cardiac rehabilitation. Please follow instruction as provided by nursing. Follow-up with PCP in: 1 week Joss Rosario MD 03/30/17 1237: Discharge Instructions Attending's Statement The patient was seen and examined together with on March 30 and I agree with the history, exam findings, and plan as outlined in the note above. I did participate in all aspects of the services provided today, including documentation and the plan of care. The patient is stable for discharge home after undergoing PCI of his first diagonal artery. The patient had no post stenting pain or other difficulties. He is set up for cardiology follow-up. His medication list for discharge has been reviewed. Philip Villafuerte DO Mar 30, 2017 07:01 Joss Rosario MD Mar 30, 2017 12:37
--- NOTE | 2017-03-30 09:21 | NUR ---
Discharge Pt D/Cd home in stable condition. Med/follow up/MD instructions reviewed verbally with patient and as well as written instructions given. No questions at this time from pt. Reviewed when to call MD or 911, symptoms to look for and how to monitor BP and HR taking the metoprolol. Hard copies given to pt, as well as instructions on when to take them. PIV x2 D/Cd intact. Pt was told to wait for staff to walk him out but pt left with on own after paperwork recieved.
--- NOTE | 2017-03-30 09:25 | NUR ---
Social Work: Discharge D: Pt discussed with attending provider; pt is medically stable for discharge. Capacity for self-care and d/c needs discussed. No concerns or needs identified. ATMOSPHERIC TECHNICIAN met with the patient at bedside to confirm discharge plan and assess for unmet needs. Pt lives at home iwth his in [place]. Pt denies any needs and has been ambulating I and participating in his own self-care. No needs identified by pt or ATMOSPHERIC TECHNICIAN. Pt to transport. A: pt who is I at baseline. P: Pt to discharge home via POV and no sw needs. Tiffani Capellan MSW
--- NOTE | 2017-03-30 19:21 | PCM.DC.MED ---
Discharge Summary Date of Service Mar 30, 2017 Dates of Hospitalization Date of Hospital Admission Mar 28, 2017 at 05:47 Date of Discharge: Mar 30, 2017 Providers: Admitting Physician: Kamryn Mack DO Primary Care Physician: Rosi Attending Physician: Joss Rosario MD Diagnosis at Time of Discharge Diagnosis at Time of Discharge STEMI Heart failure with reduced EF Elevated blood pressure Hyperglycemia Dyslipidemia Tobacco use disorder Possible TREY Procedures Cardiac Echo Impression Echocardiogram Reason For Study: STEMI Ordering Physician: [facility] Performed By: Connie Acuña Referring Physician: [facility] Interpretation Summary The left ventricle is normal in size. The ejection fraction is estimated to be 40-45%. There appears to be severe hypokinesis of mid to distal posterolateral wall, extending in to the mid to distal anterolateral wall. Inferior wall appears to be mildly hypokinetic as well. The right ventricle is grossly normal size. The right ventricular systolic function is normal. No significant valvular pathology seen. Reading Physician: PM Other Diagnostics PROCEDURE NOTE-CARDIAC CATHETERIZATION LABORATORY: CONCLUSIONS: 1. PCI-Xience Alpine SOLANGE 2.25 x 15 mm deployed at high pressure in ostium of occluded OM-1. 2. ACS-NSTEMI with atypical presentation including resolved nondiagnostic JULIÁN. 3. Coronary artery disease (CAD)--single vessel CAD of OM-1; and note also diffuse moderate atherosclerotic plaquing. RECOMMENDATIONS: 1. ECASA--indefinitely. 2. Prasugrel--Plan dual antiplatelet therapy for one year if well tolerated including with ongoing Cardiology followup; and I discussed with the patient and his not to stop Prasugrel for any reason without immediate Cardiology consultation. They understand the importance of mandatory aspirin and Prasugrel. 3. Eechocardiogram. 4. Admit to the hospitalist service. 5. OMT--Guideline directed optimal medical therapy for underlying CAD risk factors and CAD. I discussed with him the critical importance of smoking cessation. PLAN: ASA; Prasugrel; high-intensity statin; beta-francisco; and later to consider DEBO inhibitor. Misael Noble MD 03/28/17 9225 Echocardiogram Report Interpretation Summary The left ventricle is normal in size. The ejection fraction is estimated to be 40-45%. There appears to be severe hypokinesis of mid to distal posterolateral wall, extending in to the mid to distal anterolateral wall. Inferior wall appears to be mildly hypokinetic as well. The right ventricle is grossly normal size. The right ventricular systolic function is normal. No significant valvular pathology seen. Brief History Patient reports being fairly healthy with medical history significant for gout in the family history of sudden cardiac in 2 uncles. Patient reported about 10 PM last night, started having pleuritic chest pain after stepping off his truck to a friend's house with associated lightheadedness. This pain evolve to all left shoulder and left jaw pain. Patient describes his pain as crushing. Patient was initially evaluated with Valeri Luevano where the initial thought was GERD related. GI cocktail was given did not resolve pain. The initial EKG did not show any ST elevation, however repeated EKG showed ST elevation consistent with lateral AK. Patient was just transferred discussion for further evaluation. He was started on heparin and nitroglycerin which helped resolve his chest pain. Patient denies any chest pain, shortness of breath, lightheadedness, palpitation, dizziness, or headaches on interview. Patient further denies any nausea or vomiting. Hospital Course 42-year-old male without significant health history present with cardiac chest pain found to have lateral STEMI with elevated troponin, admitted for STEMI. Catheterization occlusion to [facility] and was thus stented STEMI -D-dimer negative, Elevated troponins with ST elevation -received 1 drug eluting stent to [facility] -Cont aspirin, atorvastatin, plavix. and metoprolol -Follow-up with out patient Cardiology at [facility] Heart failure with reduced EF -Echo showed EF 40-45%, with severe hypokinesis to mid distal posterolateral wall -Secondary to STEMI -Consider repeat echo to reevaluate cardiac function down the line Elevated blood pressure -metoprolol as above Hyperglycemia -A1c 6.0 Dyslipidemia -Triglyceride 256, with cholesterol 175, HDL 25 -High intensity atorvastatin Tobacco use disorder -Discussed to the dangers of smoking and the benefits of cessation. -Nicotine patch provided Possible TREY -overnight oximetry did not show any evidence of desaturation -consider a formal sleep eval Exam Vital Signs (Last) Date Time Temp Pulse Resp B/P Pulse Ox O2 Delivery O2 Flow Rate FiO2 03/30/17 08:00 36.7 68 22 122/85 95 Room Air 03/28/17 07:30 2 Exam General: No acute distress, appropriately interactive HEENT: Normocephalic, atraumatic. PERRLA, EOMI, Anicteric sclerae, moist conjunctivae. Neck: No JVD, No bruits. No lymphadenopathy or thyromegaly. Cardiovascular: Regular rate and rhythm with no murmurs, rubs, or gallops appreciated Pulmonary: b/l air sound with no crackles, wheezes, or rhonchi. no use of accessory muscles. Abdomen: +Bowel sound, Soft, nontender, nondistended. Extremities: No clubbing or cyanosis, no lymphedema, no b/l lower leg edema Skin: Normal temperature, turgor, and texture; no rash. No visualized skin ulcer. Neurological: CN II-VII grossly intact, moving equally on all 4 extremities Psychiatric: Normal mood and affect. AOx3 Test 03/28/17 04:55 03/28/17 05:00 03/28/17 09:20 03/29/17 02:20 Neutrophils (%) (Auto) 79.2% (40-74) Lymphocytes (%) (Auto) 15.6% (14-46) Monocytes (%) (Auto) 4.0% (4-12) Eosinophils (%) (Auto) 0.8% (0-5) Basophils (%) (Auto) 0.2% (0-3) D-Dimer < 0.50mg/L FEU (<0.50) Hemoglobin A1c 6.0% (4.8-5.6) Magnesium Level 2.3mg/dL (1.6-2.6) Pro-B-Type Natriuretic Peptide 57.75pg/mL (0-86) Thyroid Stimulating Hormone (TSH) 0.902uIU/mL (0.450-4.500) Hold Ray Top Tube Received (Received) Urine Color Straw (YELLOW) Urine Appearance Clear (CLEAR,HAZY) Urine pH 7.0 (5.0-8.0) Urine Specific [place] 1.007 (1.003-1.035) Urine Protein Negativemg/dL (NEG,TRACE) Urine Glucose (UA) Negativemg/dL (NEGATIVE) Urine Ketones Tracemg/dL (NEGATIVE) Urine Occult Blood Trace (NEGATIVE) Urine Nitrite Negative (NEGATIVE) Urine Bilirubin Negative (NEGATIVE) Urine Urobilinogen Normalmg/dL (NORMAL) Urine Leukocyte Esterase Negative (NEGATIVE) Urine RBC 0-2/hpf (0-2) Urine WBC 0-5/hpf (0-5) Urine Epithelial Cells Few/hpf (NONE-MOD) Urine Crystals None seen (NONE SEEN) Urine Bacteria None/hpf (NONE-FEW) Urine Hyaline Casts None/lpf (NONE) Urine Granular Casts None seen (NONE SEEN) Urine Waxy Casts None seen (NONE SEEN) Urine Red Blood Cell Casts None seen (NONE SEEN) Urine White Blood Cell Casts None seen (NONE SEEN) Urine Mucus None seen (None Seen) Urine Trichomonas None seen (NONE SEEN) Urine Yeast None (NONE SEEN) Urinalysis Comment None Hold Urine Received (Received) Urine Opiates Screen Negative Urine Methadone Screen Negative Urine Barbiturates Screen Negative Urine Amphetamines Screen Negative Urine Benzodiazepines Screen Negative Urine Cocaine Metabolite Screen Negative Urine Cannabinoids Screen Positive Activated Partial Thromboplast Time 25.1sec (22.8-33.0) White Blood Count 6.7th/mm3 (3.8-10.1) Red Blood Count 4.85mil/mm3 (4.40-5.80) Hemoglobin 13.6g/dL (13.8-17.2) Hematocrit 40.0% (41.0-50.0) Mean Corpuscular Volume 82.5fL (81-100) Mean Corpuscular Hemoglobin 28.0pg (27.0-35.0) Mean Corpuscular Hemoglobin Concent 34.0% (32.0-37.0) Red Cell Distribution Width 13.5% (12.3-15.4) Platelet Count 273bil/L (150-400) Triglycerides Level 256mg/dL (0-149) Cholesterol Level 175mg/dL (100-199) LDL Cholesterol, Calculated 98.800mg/dL (0-99) VLDL Cholesterol 51.200mg/dL HDL Cholesterol 25mg/dL (>39) Cholesterol/HDL Ratio 7.00 (0.0-4.4) Test 03/29/17 16:59 03/30/17 02:50 Total Creatine Kinase 1045U/L (21-232) Creatine Kinase MB 54.8ng/mL (0.0-10.4) Creatine Kinase MB % 5.2% (0.0-5.0) Troponin T 1.62ug/L (0.0-0.011) Sodium Level 138mEq/L (134-144) Potassium Level 4.1mEq/L (3.5-5.2) Chloride Level 102mEq/L (97-108) Carbon Dioxide Level 20mmol/L (18-29) Blood Urea Nitrogen 11mg/dL (6-24) Creatinine 0.81mg/dL (0.76-1.27) Estimat Glomerular Filtration Rate 111mL/min (>59) Glucose Level 114mg/dL (60-99) Calcium Level 9.3mg/dL (8.5-10.1) Total Bilirubin 0.6mg/dL (0.0-1.2) Direct Bilirubin 0.2mg/dL (0.0-0.3) Aspartate Amino Transf (AST/SGOT) 79U/L (0-50) Alanine Aminotransferase (ALT/SGPT) 23U/L (0-44) Alkaline Phosphatase 73U/L (25-150) Total Protein 7.6g/dL (6.4-8.4) Albumin 4.3g/dL (3.4-5.0) Discharge Medications Discharge Medications Aspirin Chew (Aspirin Chew) 81 Mg Chew 81 MG PO DAILY Prescribed by: JESUS VILLAFUERTE DO Atorvastatin Calcium (Atorvastatin Calcium) 20 Mg Tablet 40 MG PO HS Prescribed by: JESUS VILLAFUERTE DO Clopidogrel (Clopidogrel) 75 Mg Tablet 75 MG PO DAILY Prescribed by: JESUS VILLAFUERTE DO Metoprolol Tartrate (Metoprolol Tartrate) 25 Mg Tablet 12.5 MG PO BID Prescribed by: JESUS VILLAFUERTE DO As needed Nitroglycerin SL (Nitrostat) 0.4 Mg Tab.subl 0.4 MG SL Q5MIN PRN PRN For Chest Pain Prescribed by: JESUS VILLAFUERTE DO Additional med instructions Please take Plavix 75 mg daily and aspirin 81 mg daily for at least a year. This is very important to keep your stent from occluding. Please also take your dyslipidemia medication, atorvastatin 40 mg nightly. For your blood pressure, please take metoprolol 12.5 mg bid, that means 1/2 pill for breakfast 1/2 pill for dinner I have also included Nitrostat You can take this medication when you have acute chest pain. You can take 1 pill every 5 minutes for up to 3 times. Followup Plan Disposition: Home Follow-up plan You were admitted for an acute myocardial infarction, otherwise known as a heart attack. You received 1 stent at the obtuse marginal-1 coronary artery Please take your medication as instructed. You you need to have a hospital follow-up within 1 week of hospitalization. You can reestablish care with your PCP Alternatively [facility] Or lastly, you can call [facility] Internal medicine residency. -you can request for Dr. Jesus Villafuerte ([place]) PCP needs to refer you to a sleep specialist for evaluation of obstructive sleep apnea. You can have pcp to call [facility] for medical records. You will also need to establish care and followup with a corporate securities research analyst. -Dr. Debora Rosen -please call his office to make an appt Additionally, you will need cardiac rehabilitation. Please follow instruction as provided by nursing. Discharge Diet: Heart Healthy Discharge Activity: No restrictions Patient Instructions DISCHARGE INSTRUCTIONS: Medicines: You may need any of the following: * Heart medicines help decrease blood pressure, control your heart rate, and help your heart function better. * Nitroglycerin opens the arteries to your heart, increases oxygen levels, and can decrease chest pain. You may get your nitroglycerin as a pill, a patch, or a paste. Ask your healthcare provider or corporate securities research analyst how to safely take this medicine. * Aspirin helps prevent clots from forming and causing blood flow problems. If healthcare providers want you to take aspirin daily, do not take acetaminophen or ibuprofen instead. Do not take more or less aspirin than healthcare providers say to take. If you are on another blood thinner medicine, ask your healthcare provider or corporate securities research analyst before you take aspirin for any reason. * Blood thinners help prevent blood clots. Examples of blood thinners include heparin and warfarin. Clots can cause strokes, heart attacks, and . The following are general safety guidelines to follow while you are taking a blood thinner: * Watch for bleeding and bruising while you take blood thinners. Watch for bleeding from your gums or nose. Watch for blood in your urine and bowel movements. Use a soft washcloth on your skin, and a soft toothbrush to brush your teeth. This can keep your skin and gums from bleeding. If you shave, use an electric shaver. Do not play contact sports. * Tell your dentist and other healthcare providers that you take anticoagulants. Wear a bracelet or necklace that says you take this medicine. * Do not start or stop any medicines unless your healthcare provider tells you to. Many medicines cannot be used with blood thinners. * Tell your healthcare provider right away if you forget to take the medicine, or if you take too much. * Cholesterol medicine decreases cholesterol and the amount of plaque in your blood. * Do not take certain medicines without asking your healthcare provider first. These include NSAIDs, herbal or vitamin supplements. * Take your medicine as directed. Contact your healthcare provider if you think your medicine is not helping or if you have side effects. Tell him or her if you are allergic to any medicine. Keep a list of the medicines, vitamins, and herbs you take. Include the amounts, and when and why you take them. Bring the list or the pill bottles to follow-up visits. Carry your medicine list with you in case of an emergency. Cardiac rehabilitation (rehab) is a program run by specialists who will help you safely strengthen your heart and prevent more heart disease. The plan includes exercise, relaxation, stress management, and heart-healthy nutrition. Healthcare providers will also check to make sure any medicines you take are working. The plan may also include instructions for when you can drive, return to work, and do other normal daily activities. Follow up with your healthcare provider or corporate securities research analyst within 14 days or as directed: Ask for information about continuing care, treatments, and home services. Write down your questions so you remember to ask them during your visits. Lifestyle changes: * Go to cardiac rehabilitation as directed. This is a program run by specialists who will help you safely strengthen your heart and prevent more heart disease. This plan includes exercise, relaxation, stress management, and heart-healthy nutrition. Healthcare providers will also check to make sure any medicines you are taking are working. The plan may also include instructions for when you can drive, return to work, and do other normal daily activities. * Eat a heart healthy diet. Get enough calories, protein, vitamins, and minerals to help prevent poor nutrition and promote muscle strength. You may be told to eat foods low in cholesterol or sodium (salt). You also may be told to limit saturated and trans fats. Eat foods that contain healthy fats, such as walnuts, salmon, and canola and soybean oils. Eat foods that help protect the heart, including plenty of fruits and vegetables, nuts, and sources of fiber. * Do not smoke. If you smoke, it is never too late to quit. Smoking increases your risk of another AK. * Exercise. Ask your healthcare provider or corporate securities research analyst about the best exercise plan for you. Exercise makes your heart stronger, lowers blood pressure , and helps prevent an AK. The goal is 30 to 60 minutes a day, 5 to 7 days a week. Ask your healthcare provider or corporate securities research analyst how often and how long to exercise. * Maintain a healthy weight. Ask your healthcare provider or corporate securities research analyst how much you should weigh. Ask him to help you create a weight loss plan if you are overweight. * Manage your stress. Stress may slow healing and lead to illness. Learn ways to control stress, such as relaxation, deep breathing, and music. Talk to someone about things that upset you. * Get a flu vaccine every year as soon as it is available. The vaccine will help prevent the flu. Ask about other vaccinations you may need. Contact your healthcare provider or corporate securities research analyst if: * You have trouble taking your heart medicine. * You have questions or concerns about your condition or care. Seek care immediately or call 911 if: * You have any of the following signs of a heart attack: * Squeezing, pressure, or pain in your chest that lasts longer than 5 minutes or returns * Discomfort or pain in your back, neck, jaw, stomach, or arm * Trouble breathing * Nausea or vomiting * Lightheadedness or a sudden cold sweat, especially with chest pain or trouble breathing * You are tired and cannot think clearly. * Your heart is beating faster than usual. * You are bleeding from your gums or nose. * You see blood in your urine or bowel movements. * You urinate less than usual or not at all. * You have new or increased swelling in your feet or ankles Follow-up with PCP in: 1 week Time spent 60 minutes Attending Statement Patient (Mr Zepeda) seen and examined with Dr Villafuerte, agree with assessment and plan detailing clinical care. I was involved in all aspects of the care , exam and care plan. As well as discharge plan. She will be discharged with close cardiology follow up after his PCI of the diagonal coronary artery. Jesus Villafuerte DO Mar 30, 2017 19:21 Joss Rosario MD Mar 31, 2017 15:37
== END 2017-03-30 09:15 | disposition home or self-care (01) | DRG 247 ==
LOC: SED 04:41 → PCC 05:47 → CCU 08:00 → PCC 15:39
PROVIDERS: ADMIT Internal Medicine; ATTEND Hospitalist
PROC: 027034Z Dilation of Coronary Artery, One Artery with Drug-eluting Intraluminal Device, Percutaneous Approach (ICD-10-PCS; principal; 2017-03-28)
PROC: 4A023N7 Measurement of Cardiac Sampling and Pressure, Left Heart, Percutaneous Approach (ICD-10-PCS; 2017-03-28)
PROC: B2111ZZ Fluoroscopy of Multiple Coronary Arteries using Low Osmolar Contrast (ICD-10-PCS; 2017-03-28)
DX: I21.4 Non-ST elevation (NSTEMI) myocardial infarction (principal); I50.20 Unspecified systolic (congestive) heart failure; Z82.41 Family history of sudden cardiac death; F17.210 Nicotine dependence, cigarettes, uncomplicated; I25.10 Atherosclerotic heart disease of native coronary artery without angina pectoris; R73.9 Hyperglycemia, unspecified; E78.5 Hyperlipidemia, unspecified; I11.0 Hypertensive heart disease with heart failure